=== PATIENT | male | born 1950 | race Caucasian/White ===

== ENCOUNTER 2020-05-19 17:12 | Inpatient (IN) | payer MEDICARE, MEDICAID ==
[~2020-05-19] VITALS: Ht 182.9 cm; Wt 93.6 kg
[2020-05-19] MEDS ORDERED: SODIUM CHLORIDE 0.9% 1,000 ML IV ONE (17:30)
[2020-05-19] MEDS ORDERED: SODIUM CHLORIDE FLUSH 10ML SYR IVF ONE (17:30)
[2020-05-19] MEDS ORDERED: PLEASE ENTER ALLERGIES MC SCH (17:30)
[2020-05-19] MEDS ORDERED: PLEASE ENTER HEIGHT AND WEIGHT MC SCH (17:30)
[2020-05-19 17:46] LABS: MEAN CORPUSCULAR HEMOGLOBIN 33.9 pg (27.5-34.5); MEAN CORPUSCULAR HGB CONC 34.9 g/dL (33.2-36.2); MEAN PLATELET VOLUME 6.8 fL (7.4-10.4); RED BLOOD COUNT 4.09 x10^6/uL (4.38-5.82); RED CELL DISTRIBUTION WIDTH 14.4 % (9.4-14.8)
[2020-05-19] MEDS ORDERED: LACTULOSE (17:50)
[2020-05-19] MEDS ORDERED: OMEPRAZOLE (17:50)
[2020-05-19] MEDS ORDERED: CITALOPRAM (17:50)
[2020-05-19] MEDS ORDERED: PREGABALIN (17:50)
[2020-05-19] MEDS ORDERED: LASIX (17:50)
[2020-05-19] MEDS ORDERED: LANTUS (17:50)
[2020-05-19] MEDS ORDERED: BUPROPION (17:50)
[2020-05-19] MEDS ORDERED: GLIPIZIDE (17:50)
[2020-05-19] MEDS ORDERED: METFORMIN (17:50)
[2020-05-19] MEDS ORDERED: LISINOPRIL (17:50)
[2020-05-19] MEDS ORDERED: NOVOLOG (17:50)
[2020-05-19] MEDS ORDERED: LOVASTATIN (17:50)
[2020-05-19] MEDS ORDERED: SPIRONOLACTONE (17:50)
--- NOTE | 2020-05-19 17:51 | NUR ---
LATE ENTRY FOR 1724. PT'S ET CO2 DECREASED TO 15 MMHG WITH PT LAYING AT 30 DEGREES. PT REPOSITIONED TO IMPROVE AIRWAY, NOW HAS SPO2 OF 98 % AND ET CO2 OF [address] KOEHLER AWARE OF PT'S VS, ABG ORDERED. PTS DAUGHTER, DALLIN PATEL, CONTACTED AT [phone] TO DISCUSS POC W/ DR. KOEHLER. PT'S POLST AT BEDSIDE AND WISHES REVIEWED WITH PT'S DAUGHTER BY DR. KOEHLER. AWAITING LAB RESULTS TO DETERMINE COURSE OF ACTION. PT'S FAMILY CALLED EMS WHEN THEY WERE UNABLE TO REACH HIM BY PHONE. FAMILY LAST SPOKE C PT AT 1999 LAST NIGHT. PT FOUND BY EMS TO BE UNRESPONSE, SUPINE ON HIS BED. BLOOD GLUCOSE BY EMS READ AT 166, VSS 136/81, HR 83, SPO2 97%. PT REPSONSIVE TO VERBAL STIMULI, SLOVENIAN SPEAKING.
[2020-05-19 17:56] LABS: ALANINE AMINOTRANSFERASE 40 U/L (12-78); ALBUMIN 2.9 g/dL (3.4-5.0); ANION GAP 9 mmol/L (5-15); CALCIUM 8.6 mg/dL (8.5-10.1); CHLORIDE 111 mmol/L (98-107)
[2020-05-19 18:07] LABS: ALKALINE PHOSPHATASE 131 U/L (45-117); TOTAL PROTEIN 6.6 g/dL (6.4-8.2)
[2020-05-19 18:10] LABS: SALICYLATE LEVEL < 1.7 mg/dL (2.8-20.0)
[2020-05-19 18:11] LABS: MD YES; PLATELET COUNT 34 x10^3/uL (130-400)
--- NOTE | 2020-05-19 18:18 | NUR ---
1805 - PT WHEELED TO CT VIA VeritractRAmbature C CONTINUOUS SPO2 AND CARDICA MONITORING IN PLACE. TOLERATED SCAN WELL.
--- NOTE | 2020-05-19 18:22 | NUR ---
PT REMAINS RESPONSIVE TO VERBAL STIMULI. WHEN ASKED HIS NAME, PT RESPONDS W/ "[place]."
--- NOTE | 2020-05-19 18:24 | NUR ---
PT'S DAUGHTER, LEESA, ARRIVED TO BEDSIDE. DAUGHTER STATES THAT PT IS BI-LINGUAL AND UNDERSTANDS/SPEAKS ESTONIAN WELL.
[2020-05-19] MEDS ORDERED: LACTULOSE 3.3 GM/5 ML ORAL.SOL RC ONE (18:30)
[2020-05-19] MEDS ORDERED: ONDANSETRON 2MG/ML, 2ML IVPush PRN (18:30)
[2020-05-19] MEDS ORDERED: ONDANSETRON ODT 4 MG PO PRN (18:30)
[2020-05-19] MEDS ORDERED: CEFTRIAXONE PMX 1GM/50ML 50 ML IV ONE (18:30)
[2020-05-19] MEDS ORDERED: OXYcodone IR 5MG TABLET PO PRN (18:30)
[2020-05-19] MEDS ORDERED: hydrALAzine 20 MG/ML, 1ML IVPush PRN (18:30)
[2020-05-19] MEDS ORDERED: PROMETHAZINE 25 MG/ML, 1ML IM PRN (18:30)
--- NOTE | 2020-05-19 18:36 | NUR ---
COVID SWAB PERFORMED, WALKED TO LAB BY Thoora. PT'S YELLOW METAL CHAIN NECKLACE WITH CROSS GIVEN TO PT'S DAUGHTER, LEESA.
[2020-05-19] MEDS ORDERED: CEFTRIAXONE PMX 1GM/50ML 50 ML ONE (18:43)
[2020-05-19 18:45] LABS: BAND#(MANUAL) 0.09 x10^3/uL; BANDS%(MANUAL) 3 % (0-7); BASOS#(MANUAL) 0.03 x10^3/uL (0-0.1); BASOS% (MANUAL) 1 % (0-1); LYMPH#(MANUAL) 0.42 x10^3/uL (1-3.4); LYMPHS% (MANUAL) 14 % (22-44); MONOS#(MANUAL) 0.21 x10^3/uL (0.3-2.7); MONOS% (MANUAL) 7 % (2-9); REACTIVE LYMPHS # (MANUAL) 0.06 x10^3/uL (0-0); REACTIVE LYMPHS % (MANUAL) 2 % (0-0); SEG#(MANUAL) 2.19 x10^3/uL (1.8-6.8); SEGS% (MANUAL) 73 % (42-75)
[2020-05-19 18:49] LABS: <PLATELET ESTIMATE> DECREASED
[2020-05-19 18:50] LABS: <PLT MORPHOLOGY> NORMAL PLT MORPH; ANISOCYTOSIS 1+; OVALOCYTES 1+
--- NOTE | 2020-05-19 19:06 | NUR ---
BEDSIDE SHIFT REPORT TO HEATHER CUENCA. PT BECOMING INCREASINGLY ALERT. EYE OPENING SPONTANEOUSLY. PER MD, NG TO BE INSERTED TO ADMINISTER LACTULOSE.
[2020-05-19] MEDS ORDERED: LACTULOSE 10 GM/15 ML UDC PO SCH (21:00)
[2020-05-19] MEDS: DOXYCYCLINE 100 MG in DEXTROSE 5% 250 ML IV SCH (21:15)
[2020-05-19 23:08] VITALS: BP 127/78
[2020-05-19 23:17] LABS: AMPHETAMINE SCREEN, URINE Negative (Negative); BARBITURATE SCREEN, URINE Negative (Negative); BENZODIAZEPINE SCREEN, URINE Negative (Negative); CANNABINOID SCREEN, URINE Negative (Negative); COCAINE SCREEN, URINE Negative (Negative); METHADONE SCREEN, URINE Negative (Negative); OPIATE SCREEN, URINE Negative (Negative)
[2020-05-19 23:19] VITALS: BP 127/78
[2020-05-19 23:44] LABS: MICROSCOPIC NOT IND
[2020-05-19] MEDS: INSULIN LISPRO 100 UNITS/ML, PEN SQ-INSULIN SCH (23:44)
[2020-05-20 01:16] VITALS: BP 133/69
[2020-05-20] MEDS ORDERED: LACTULOSE 10 GM/15 ML UDC PO ONE (02:30)
[2020-05-20] MEDS: DOXYCYCLINE 100 MG in DEXTROSE 5% 250 ML IV SCH ×2 (06:44→17:54)
[2020-05-20 07:10] LABS: ALBUMIN 2.7 g/dL (3.4-5.0); ANION GAP 9 mmol/L (5-15); CALCIUM 8.1 mg/dL (8.5-10.1); CHLORIDE 113 mmol/L (98-107)
[2020-05-20 07:20] LABS: ALANINE AMINOTRANSFERASE 32 U/L (12-78); ALKALINE PHOSPHATASE 115 U/L (45-117); CHOL/HDL RATIO 2.1; CHOLESTEROL, TOTAL 150 mg/dL (140-239); CREATININE 0.63 mg/dL (0.7-1.3); HDL CHOL % 47 % (26-37); HDL CHOLESTEROL (DIRECT) 70 mg/dL (40-60); TOTAL PROTEIN 6.1 g/dL (6.4-8.2)
[2020-05-20 07:23] VITALS: BP 119/73
[2020-05-20 07:24] LABS: BASOPHILS % (AUTO) 0 % (0-1); EOSINOPHILS % (AUTO) 3 % (1-7); LYMPHOCYTES % (AUTO) 20 % (22-44); MD NO; MEAN CORPUSCULAR HEMOGLOBIN 34.4 pg (27.5-34.5); MONOCYTES % (AUTO) 8 % (2-9); NEUTROPHILS % (AUTO) 69 % (42-75); RED BLOOD COUNT 3.74 x10^6/uL (4.38-5.82); RED CELL DISTRIBUTION WIDTH 14.3 % (9.4-14.8)
[2020-05-20 07:25] LABS: PLATELET COUNT 33 x10^3/uL (130-400)
[2020-05-20 07:28] LABS: LDL CHOLESTEROL,CALCULATED 62 mg/dL (54-169); LDL/HDL RATIO 0.9 (0.5-3.0); TRIGLYCERIDES 88 mg/dL (50-200); VLDL CHOLESTEROL 18 mg/dL (0-25)
[2020-05-20] MEDS ORDERED: LACTULOSE 10 GM/15 ML UDC PO SCH (09:00)
[2020-05-20] MEDS: INSULIN LISPRO 100 UNITS/ML, PEN SQ-INSULIN SCH ×4 (09:32→21:56)
[2020-05-20 10:01] LABS: MICROSCOPIC INDICATED
[2020-05-20] MEDS ORDERED: MAGNESIUM SULFATE PMX 4GM/100M 100 ML IVPB ONE (11:00)
[2020-05-20] MEDS: RIFAXIMIN 550 MG TABLET PO SCH ×2 (11:17→21:45)
[2020-05-20 12:44] VITALS: BP 123/74
[2020-05-20] MEDS: LACTULOSE 10 GM/15 ML UDC PO SCH ×2 (16:52→21:44)
[2020-05-20] MEDS: CEFTRIAXONE PMX 2GM/50ML 50 ML IVPB SCH (16:52)
[2020-05-20 20:33] VITALS: BP 122/70
[2020-05-20] MEDS: LOVASTATIN 20 MG TABLET PO SCH (21:45)
[2020-05-21 01:06] VITALS: BP 117/77
[2020-05-21] MEDS: DOXYCYCLINE 100 MG in DEXTROSE 5% 250 ML IV SCH ×2 (06:17→17:56)
[2020-05-21] MEDS ORDERED: DOCUSATE 100 MG CAPSULE PO ONE (07:00)
[2020-05-21 07:12] LABS: BASOPHILS % (AUTO) 0 % (0-1); EOSINOPHILS % (AUTO) 5 % (1-7); LYMPHOCYTES % (AUTO) 12 % (22-44); MEAN CORPUSCULAR HEMOGLOBIN 34.7 pg (27.5-34.5); MEAN CORPUSCULAR HGB CONC 35.7 g/dL (33.2-36.2); MEAN PLATELET VOLUME 7.2 fL (7.4-10.4); MONOCYTES % (AUTO) 9 % (2-9); NEUTROPHILS % (AUTO) 74 % (42-75); RED BLOOD COUNT 3.74 x10^6/uL (4.38-5.82); RED CELL DISTRIBUTION WIDTH 14.5 % (9.4-14.8)
[2020-05-21 07:25] LABS: CHLORIDE 111 mmol/L (98-107)
[2020-05-21 07:30] LABS: ALANINE AMINOTRANSFERASE 40 U/L (12-78); ALBUMIN 2.7 g/dL (3.4-5.0); ALKALINE PHOSPHATASE 112 U/L (45-117); ANION GAP 6 mmol/L (5-15); BILIRUBIN,TOTAL 5.8 mg/dL (0.2-1.0); CALCIUM 7.9 mg/dL (8.5-10.1); CREATININE 0.57 mg/dL (0.7-1.3); TOTAL PROTEIN 6.1 g/dL (6.4-8.2)
[2020-05-21 07:59] LABS: INTERNATIONAL NORMALIZED RATIO 1.57 (0.93-1.1); PROTHROMBIN TIME 16.6 Seconds (9.6-11.5)
[2020-05-21 08:04] VITALS: BP 122/68
[2020-05-21] MEDS: RIFAXIMIN 550 MG TABLET PO SCH ×2 (08:25→20:38)
[2020-05-21] MEDS: LACTULOSE 10 GM/15 ML UDC PO SCH ×3 (08:25→20:38)
[2020-05-21] MEDS: ZINC SULFATE 220 MG CAPSULE PO SCH (08:25)
[2020-05-21] MEDS: LISINOPRIL 5 MG TABLET PO SCH (08:26)
[2020-05-21] MEDS: INSULIN LISPRO 100 UNITS/ML, PEN SQ-INSULIN SCH ×4 (08:26→20:38)
[2020-05-21] MEDS: THIAMINE 100MG TABLET PO SCH (08:26)
[2020-05-21 08:59] LABS: MD SCAN
[2020-05-21 09:01] LABS: PLATELET COUNT 30 x10^3/uL (130-400)
[2020-05-21 09:02] LABS: HCT (SEDRATE) 36.4 % (39.2-51.8)
[2020-05-21 12:14] VITALS: BP 123/74
[2020-05-21] MEDS ORDERED: MAGNESIUM SULFATE PMX 2GM/50ML 50 ML IV ONE (12:30)
[2020-05-21] MEDS ORDERED: LOVA20TA2 PO (12:39)
[2020-05-21] MEDS ORDERED: DOXY100T PO (12:39)
[2020-05-21] MEDS ORDERED: CEFD300C37 PO ×2 (12:39)
[2020-05-21] MEDS: CEFTRIAXONE PMX 2GM/50ML 50 ML IVPB SCH (16:35)
[2020-05-21 19:42] VITALS: BP 111/56
[2020-05-21] MEDS: LOVASTATIN 20 MG TABLET PO SCH (20:37)
[2020-05-22 00:04] VITALS: BP 113/68
[2020-05-22] MEDS: DOXYCYCLINE 100 MG in DEXTROSE 5% 250 ML IV SCH (05:23)
[2020-05-22 07:04] VITALS: BP 148/82
[2020-05-22] MEDS: LISINOPRIL 5 MG TABLET PO SCH (08:21)
[2020-05-22] MEDS: RIFAXIMIN 550 MG TABLET PO SCH (08:21)
[2020-05-22] MEDS: ZINC SULFATE 220 MG CAPSULE PO SCH (08:22)
[2020-05-22] MEDS: THIAMINE 100MG TABLET PO SCH (08:22)
[2020-05-22] MEDS: LACTULOSE 10 GM/15 ML UDC PO SCH (08:23)
[2020-05-22] MEDS: INSULIN LISPRO 100 UNITS/ML, PEN SQ-INSULIN SCH ×2 (08:36→12:20)
[2020-05-22] MEDS ORDERED: SPIRONOLACTONE 25 MG TABLET PO SCH (09:00)
[2020-05-22] MEDS ORDERED: LACT10SO24 PO (11:16)
[2020-05-22] MEDS ORDERED: RIFA550T4 PO (11:16)
[2020-05-22] MEDS ORDERED: CEFD300C37 PO (11:16)
[2020-05-22] MEDS ORDERED: LACT1TAB13 PO (11:16)
[2020-05-22 12:07] VITALS: BP 113/68
== END 2020-05-22 22:56 | disposition home health service (06) | DRG 441 ==
LOC: ED 21:09 → EDIP 21:33 → 4EST 22:59
PROVIDERS: ADMIT Internal Medicine; ATTEND Internal Medicine
DX: K72.00 Acute and subacute hepatic failure without coma (principal); G93.41 Metabolic encephalopathy; J18.9 Pneumonia, unspecified organism; J96.01 Acute respiratory failure with hypoxia; E87.2 Acidosis; D61.818 Other pancytopenia; D68.4 Acquired coagulation factor deficiency; K74.60 Unspecified cirrhosis of liver; Z66 Do not resuscitate; Z20.828 Contact with and (suspected) exposure to other viral communicable diseases; D63.8 Anemia in other chronic diseases classified elsewhere; D75.89 Other specified diseases of blood and blood-forming organs; E11.9 Type 2 diabetes mellitus without complications; E78.00 Pure hypercholesterolemia, unspecified; E78.5 Hyperlipidemia, unspecified; E83.42 Hypomagnesemia; E88.09 Other disorders of plasma-protein metabolism, not elsewhere classified; F32.9 Major depressive disorder, single episode, unspecified; I10 Essential (primary) hypertension; K75.81 Nonalcoholic steatohepatitis (NASH); K21.9 Gastro-esophageal reflux disease without esophagitis; Z79.899 Other long term (current) drug therapy
CPT/HCPCS: 36415; 36600; 70450; 71045; 74018; 76700; 80053; 80061; 80299; 80307; 80320; 80329; 81001; 81003; 82140; 82803; 82962; 83036; 83615; 83735; 84100; 84145; 84443; 85025; 85384; 85610; 85651; 87040; 87086; 93005; G0378; J0696; J7060; G0480; J1815; J3475; J7030; U0003